=== PATIENT | male | born 1975 | race Caucasian/White ===

== ENCOUNTER 2021-09-12 15:55 | Emergency (ER) | payer OTHER ==
[2021-09-12 16:20] VITALS: BP 143/76
== END 2021-09-12 17:30 | disposition left against medical advice (07) ==
LOC: ED 15:55
DX: Z53.21 Procedure and treatment not carried out due to patient leaving prior to being seen by health care provider (principal)

== ENCOUNTER 2021-09-12 17:39 | Emergency (ER) | payer OTHER ==
[2021-09-12 17:54] VITALS: BP 141/83
== END 2021-09-12 18:54 | disposition left against medical advice (07) ==
LOC: ED 17:39
DX: Z53.21 Procedure and treatment not carried out due to patient leaving prior to being seen by health care provider (principal)